=== PATIENT | female | born 1945 | race Caucasian/White ===

== ENCOUNTER 2021-06-10 17:26 | Emergency (ER) | payer MEDICARE ==
[~2021-06-10] VITALS: Ht 144.8 cm; Wt 50.0 kg
[2021-06-10 19:25] VITALS: BP 150/69
== END 2021-06-10 19:35 | disposition home or self-care (01) ==
LOC: ED 17:26
DX: I10 Essential (primary) hypertension (principal); K21.9 Gastro-esophageal reflux disease without esophagitis; F41.9 Anxiety disorder, unspecified; E78.5 Hyperlipidemia, unspecified